=== PATIENT | female | born 1960 | race Hispanic/Latino ===

== ENCOUNTER 2020-09-04 12:52 | Emergency (ER) | payer MEDICARE, MEDICAID | END 2020-09-04 23:12 | disposition home or self-care (01) | LOC: ERS 12:52 | DX: K94.23 Gastrostomy malfunction (principal); G47.00 Insomnia, unspecified | CPT/HCPCS: 99283 ==

== ENCOUNTER 2021-01-11 12:07 | Inpatient (IN) | payer MEDICARE, OTHER ==
[2021-01-11] MEDS ORDERED: Ondansetron PF 4 MG/2 ML Vial IVP PRN (14:36)
[2021-01-11] MEDS ORDERED: Ondansetron ODT 4 MG TAB PO PRN (14:36)
[2021-01-11] MEDS ORDERED: Dextrose 50% Abboject 50 ML SYRINGE SLOW IVP PRN (14:36)
[2021-01-11] MEDS ORDERED: hydrALAZINE 20 MG/ML VIAL SLOW IVP PRN (14:36)
[2021-01-11] MEDS ORDERED: Dextrose 5% in Water 1,000 ML IV PRN (14:36)
[2021-01-11] MEDS ORDERED: Morphine 2 MG/ML VIAL SLOW IVP PRN (14:36)
[2021-01-11] MEDS ORDERED: traMADol HCl 50 MG TAB PO PRN ×2 (14:39)
[2021-01-11] MEDS ORDERED: Cyclobenzaprine 10 MG TAB PO PRN (14:39)
[2021-01-11 16:38] VITALS: BMI 19.5
[2021-01-11] MEDS: Acetaminophen 500 MG TAB PO SCH ×2 (19:25→20:52)
[2021-01-11] MEDS: Sodium Chloride 0.9% 1,000 ML IV SCH (19:26)
[2021-01-11] MEDS: Ibuprofen 200 MG TAB PO SCH (19:27)
[2021-01-11] MEDS: Melatonin 3 MG TAB PO SCH (20:52)
[2021-01-11] MEDS: Famotidine 20 MG TAB PO SCH (20:52)
[2021-01-12] MEDS: Ibuprofen 200 MG TAB PO SCH ×3 (00:28→15:09)
[2021-01-12] MEDS: Sodium Chloride 0.9% 1,000 ML IV SCH (00:28)
[2021-01-12] MEDS: Acetaminophen 500 MG TAB PO SCH ×3 (02:32→12:21)
[2021-01-12 06:32] LABS: Anion Gap 11 mmol/L (10-20); BUN (Urea Nitrogen) 18 mg/dL (9.8-20.1); Calc. Creatinine Clearance 69 mL/min (70-130); Calcium 7.5 mg/dL (7.8-10.44); Carbon Dioxide 20 mmol/L (22-29); Chloride 118 mmol/L (98-107); Glucose 90 mg/dL (70-105); Phosphorus 2.3 mg/dL (2.3-4.7); Potassium 3.8 mmol/L (3.5-5.1); Sodium 145 mmol/L (136-145)
[2021-01-12 06:54] LABS: #Eosinphils 0.1 thou/uL (0.0-0.7); #Lymphocytes 2.4 thou/uL (1.20-3.40); #Monocytes 0.8 thou/uL (0.11-0.59); #Neutrophils 5.9 thou/uL (1.40-6.50); %Basophils 0.3 % (0.0-1.0); %Eosinophils 0.6 % (0.0-10.0); %Lymphocytes 26.2 % (21.0-51.0); %Monocytes 8.5 % (0.0-10.0); %Neutrophils 64.4 % (42.0-75.0); Hemoglobin 7.2 g/dL (12.0-16.0); Mean Corpuscular HGB CONC 34.4 g/dL (32.0-36.0); Mean Corpuscular Hemoglobin 33.3 pg (27.0-31.0); Mean Corpuscular Volume 96.9 fL (78.0-98.0); Mean Platelet Volume 9.6 fL (7.4-10.4); Platelet Count 105 thou/uL (130-400); Platelet Morphology Comment Appears Decreased; RBC Distribution Width 12.2 % (11.5-14.5); Red Blood Cell (RBC) Count 2.14 mill/uL (4.20-5.40); White Blood Cell (WBC) Count 9.1 thou/uL (4.8-10.8)
[2021-01-12] MEDS ORDERED: Fentanyl 100 MCG/2 ML VIAL ONE ×2 (07:59→09:04)
[2021-01-12] MEDS ORDERED: CEFAZOLIN 2 GM in Premix Bag 1 BAG IVPB SCH (08:00)
[2021-01-12] MEDS ORDERED: Dexamethasone 20 MG/5 ML VIAL ONE (08:21)
[2021-01-12] MEDS ORDERED: PROPOFOL 200 MG/20 ML VIAL ONE (08:21)
[2021-01-12] MEDS ORDERED: Esmolol 100 MG/10 ML VIAL ONE (08:21)
[2021-01-12] MEDS ORDERED: Glycopyrrolate 0.2 MG/ML 5 ML SYRINGE ONE (08:21)
[2021-01-12] MEDS ORDERED: PHENYLEPHRINE-NS 100 MCG/ML 10 ML SYRINGE ONE (08:21)
[2021-01-12] MEDS ORDERED: ePHEDrine Sulfate 50 MG/10 ML VIAL ONE (08:21)
[2021-01-12] MEDS ORDERED: Lidocaine 1% PF 5 ML VIAL ONE (08:21)
[2021-01-12] MEDS ORDERED: Rocuronium Bromide 10 MG/ML (10ML VIAL) ONE (08:21)
[2021-01-12] MEDS ORDERED: Promethazine HCl 25 MG/ML VIAL IVPB PRN (09:24)
[2021-01-12] MEDS ORDERED: Ondansetron HCl/PF 4 MG/2 ML Vial IVP PRN (09:24)
[2021-01-12] MEDS ORDERED: Promethazine HCl 25 MG/ML VIAL IM PRN (09:24)
[2021-01-12] MEDS: Ferrous Sulfate 325 MG TAB PO SCH ×2 (11:51→17:26)
[2021-01-12] MEDS: Ascorbic Acid 500 mg Chewable Tablet PO SCH ×2 (11:52→21:56)
[2021-01-12] MEDS: Famotidine 20 MG TAB PO SCH ×2 (12:19→21:56)
[2021-01-12] MEDS: Acetaminophen 325 MG TAB PO SCH ×2 (14:40→17:26)
[2021-01-12] MEDS: CEFAZOLIN 2 GM in Premix Bag 1 BAG IVPB SCH ×2 (15:08→21:56)
[2021-01-12] MEDS: Melatonin 3 MG TAB PO SCH (21:56)
[2021-01-12 22:33] LABS: Hemoglobin 6.3 g/dL (12.0-16.0); Platelet Count 98 thou/uL (130-400)
[2021-01-13] MEDS: Ibuprofen 200 MG TAB PO SCH ×4 (00:30→23:57)
[2021-01-13] MEDS: Acetaminophen 325 MG TAB PO SCH ×6 (00:31→23:57)
[2021-01-13 05:40] LABS: Anion Gap 10 mmol/L (10-20); BUN (Urea Nitrogen) 14 mg/dL (9.8-20.1); Calc. Creatinine Clearance 64 mL/min (70-130); Calcium 7.9 mg/dL (7.8-10.44); Carbon Dioxide 23 mmol/L (22-29); Chloride 112 mmol/L (98-107); Glucose 90 mg/dL (70-105); Phosphorus 2.9 mg/dL (2.3-4.7); Potassium 3.8 mmol/L (3.5-5.1); Sodium 141 mmol/L (136-145)
[2021-01-13 05:42] LABS: #Basophils 0.1 thou/uL (0.0-0.2); #Lymphocytes 2.4 thou/uL (1.20-3.40); #Monocytes 0.6 thou/uL (0.11-0.59); #Neutrophils 5.1 thou/uL (1.40-6.50); %Basophils 1.7 % (0.0-1.0); %Eosinophils 0.3 % (0.0-10.0); %Lymphocytes 28.7 % (21.0-51.0); %Monocytes 7.7 % (0.0-10.0); %Neutrophils 61.6 % (42.0-75.0); Hemoglobin 7.8 g/dL (12.0-16.0); Mean Corpuscular HGB CONC 32.8 g/dL (32.0-36.0); Mean Corpuscular Hemoglobin 30.5 pg (27.0-31.0); Mean Corpuscular Volume 92.9 fL (78.0-98.0); Platelet Count 97 thou/uL (130-400); Red Blood Cell (RBC) Count 2.55 mill/uL (4.20-5.40); White Blood Cell (WBC) Count 8.3 thou/uL (4.8-10.8)
[2021-01-13] MEDS: Ascorbic Acid 500 mg Chewable Tablet PO SCH ×2 (09:23→21:25)
[2021-01-13] MEDS: Ferrous Sulfate 325 MG TAB PO SCH ×2 (09:23→17:01)
[2021-01-13] MEDS: Famotidine 20 MG TAB PO SCH ×2 (09:24→21:25)
[2021-01-13] MEDS ORDERED: RisperDAL M-TAB 1 MG TAB SL SCH (19:15)
[2021-01-13] MEDS: Melatonin 3 MG TAB PO SCH (21:25)
[2021-01-13] MEDS: levETIRAcetam 500 MG TAB PO SCH (21:25)
[2021-01-13] MEDS: Fludrocortisone Acetate 0.1 MG TAB PO SCH (21:25)
[2021-01-14] MEDS: Acetaminophen 325 MG TAB PO SCH ×2 (06:13→12:54)
[2021-01-14] MEDS ORDERED: Mirtazapine 15 MG TAB PO SCH (09:00)
[2021-01-14] MEDS: Fludrocortisone Acetate 0.1 MG TAB PO SCH (09:37)
[2021-01-14] MEDS: Ascorbic Acid 500 mg Chewable Tablet PO SCH (09:37)
[2021-01-14] MEDS: Famotidine 20 MG TAB PO SCH (09:37)
[2021-01-14] MEDS: levETIRAcetam 500 MG TAB PO SCH (09:37)
[2021-01-14] MEDS: Ferrous Sulfate 325 MG TAB PO SCH (09:37)
[2021-01-14] MEDS: Ibuprofen 200 MG TAB PO SCH (09:38)
[2021-01-14 11:49] VITALS: BP 111/58; TEMP 97.7
== END 2021-01-14 13:00 | DRG 481 ==
LOC: SURG B 12:07
PROVIDERS: ADMIT Surgery; ATTEND Surgery
PROC: 0QH636Z Insertion of Intramedullary Internal Fixation Device into Right Upper Femur, Percutaneous Approach (ICD-10-PCS; principal; 2021-01-12)
PROC: 30233N1 Transfusion of Nonautologous Red Blood Cells into Peripheral Vein, Percutaneous Approach (ICD-10-PCS; 2021-01-13)
DX: S72.141A Displaced intertrochanteric fracture of right femur, initial encounter for closed fracture (principal); Z68.1 Body mass index [BMI] 19.9 or less, adult; F03.90 Unspecified dementia, unspecified severity, without behavioral disturbance, psychotic disturbance, mood disturbance, and anxiety; G47.00 Insomnia, unspecified; D64.9 Anemia, unspecified; R13.10 Dysphagia, unspecified; R63.0 Anorexia; W19.XXXA Unspecified fall, initial encounter; Z96.642 Presence of left artificial hip joint; Z86.73 Personal history of transient ischemic attack (TIA), and cerebral infarction without residual deficits; Z79.82 Long term (current) use of aspirin
CPT/HCPCS: 36415; 36430; 76000; 80048; 83735; 84100; 85025; 86850; 86900; 86901; C1713; J0690; J1100; J2704; J3010; P9016

== ENCOUNTER 2021-04-06 22:09 | Emergency (ER) | payer MEDICARE, OTHER | END 2021-04-07 01:45 | disposition home or self-care (01) | LOC: ERS 22:09 | DX: S00.11XA Contusion of right eyelid and periocular area, initial encounter (principal); G47.00 Insomnia, unspecified; W19.XXXA Unspecified fall, initial encounter | CPT/HCPCS: 70450 ==

== ENCOUNTER 2021-04-08 21:59 | Emergency (ER) | payer MEDICARE, OTHER ==
[2021-04-08] MEDS ORDERED: Boostrix 0.5 ML (Tdap) VIAL ONE (22:42)
[2021-04-08 23:40] LABS: INR-International Normal Ratio 0.9; PTT 32.4 sec (22.9-36.1)
[2021-04-08 23:48] LABS: #Lymphocytes 1.7 thou/uL (1.20-3.40); #Monocytes 0.4 thou/uL (0.11-0.59); #Neutrophils 1.8 thou/uL (1.40-6.50); %Basophils 0.6 % (0.0-1.0); %Eosinophils 1.1 % (0.0-10.0); %Lymphocytes 42.9 % (21.0-51.0); %Monocytes 11.1 % (0.0-10.0); %Neutrophils 44.2 % (42.0-75.0); Hemoglobin 12.1 g/dL (12.0-16.0); Mean Corpuscular Hemoglobin 30.9 pg (27.0-31.0); Mean Corpuscular Volume 96.4 fL (78.0-98.0); Mean Platelet Volume 10.3 fL (7.4-10.4); Platelet Count 82 thou/uL (130-400); Platelet Morphology Comment Appears Decreased; RBC Distribution Width 14.3 % (11.5-14.5); Red Blood Cell (RBC) Count 3.93 mill/uL (4.20-5.40)
[2021-04-08 23:54] LABS: ALT (SGPT) 31 U/L (8-55); AST (SGOT) 22 U/L (5-34); Albumin 3.7 g/dL (3.5-5.0); Alkaline Phosphatase 205 U/L (40-110); Anion Gap 15 mmol/L (10-20); BUN (Urea Nitrogen) 17 mg/dL (9.8-20.1); Bilirubin, Total Less than 0.2 mg/dL (0.2-1.2); CK (CPK) 41 U/L (29-168); Calc. Creatinine Clearance 0 mL/min (70-130); Calcium 9.2 mg/dL (7.8-10.44); Carbon Dioxide 28 mmol/L (22-29); Chloride 108 mmol/L (98-107); Glucose 68 mg/dL (70-105); Potassium 4.6 mmol/L (3.5-5.1); Protein, Total 7.7 g/dL (6.0-8.3); Sodium 146 mmol/L (136-145)
== END 2021-04-09 02:09 ==
LOC: ERS 21:59
DX: S01.81XA Laceration without foreign body of other part of head, initial encounter (principal); S60.222A Contusion of left hand, initial encounter; S80.02XA Contusion of left knee, initial encounter; S80.01XA Contusion of right knee, initial encounter; D69.6 Thrombocytopenia, unspecified; W05.0XXA Fall from non-moving wheelchair, initial encounter
CPT/HCPCS: 12011; 70450; 71045; 72125; 72170; 80053; 82550; 84484; 85025; 85610; 85730; 90471; 90715; 93005